=== PATIENT | female | born 1950 | race African-American/Black ===

== ENCOUNTER 2016-10-28 08:14 | Emergency (ER) | payer MEDICARE, MEDICAID ==
[~2016-10-28] VITALS: Ht 165.1 cm; Wt 70.0 kg
[2016-10-28] MEDS ORDERED: LISI2.5T47 PO (08:16)
[2016-10-28] MEDS ORDERED: MORPHINE SULFATE 2 MG/ML CPJ (NOT FOR IM USE) IV ONE (09:00)
[2016-10-28] MEDS ORDERED: KETOROLAC 30MG/ML VIAL IV ONE (09:00)
[2016-10-28] MEDS ORDERED: MORPHINE SULFATE 4 MG/ML CPJ (NOT FOR IM USE) IV ONE (09:30)
[2016-10-28 12:05] VITALS: BP 138/92
== END 2016-10-28 15:27 | disposition home or self-care (01) ==
LOC: ER 08:29
DX: S22.32XA Fracture of one rib, left side, initial encounter for closed fracture (principal); W01.0XXA Fall on same level from slipping, tripping and stumbling without subsequent striking against object, initial encounter; Y93.89 Activity, other specified; Y92.89 Other specified places as the place of occurrence of the external cause; I10 Essential (primary) hypertension; J44.9 Chronic obstructive pulmonary disease, unspecified
CPT/HCPCS: 71020; 71100; 96374; 99284; J1885